=== PATIENT | female | born 1965 | race Two or more races ===

== ENCOUNTER 2020-10-31 13:09 | Emergency (ER) | payer MEDICARE ==
[~2020-10-31] VITALS: Ht 167.6 cm; Wt 100.2 kg
--- NOTE | 2020-10-31 13:41 | NUR ---
PT CAME IN [place], BODY ACHES AND SOB. "THIS MORNING I WOKE UP AND I FELT LIKE I WAS HAVING A HARD TIME CATCHING MY BREATH". PT TESTES POSITIVE FOR COVID LAST FRIDAY AND RECEIVED BOTH DOSES OF THE COVID VACCINE- LAST DOSE ON 10/06. EKG COMPLETE. PT RESTING IN GURNEY CONNECTED TO ALL MONITORING EQUIPMENT
--- NOTE | 2020-10-31 14:05 | NUR ---
ASSUMED CARE ON PT. SHE IS RESTING COMFORTABLY IN [place], ON MONITORS. VSS, DENIES PAIN, REG/UNLABORED RESP. NADN. CALL LIGHT WITHIN REACH.
[2020-10-31] MEDS ORDERED: SODIUM CHLORIDE FLUSH 10ML SYR IVF ONE (14:30)
--- NOTE | 2020-10-31 14:32 | NUR ---
XRAY COMPLETED. LABS BEING DRAWN NOW. REQUESTED TO COME BACK TO ROOM, THEY LIVE TOGETHER AND THIS WAS APPROVED. AND PT INSTRUCTED THERE IS NO IN/OUT. NADN, REGULAR/UNLABORED RESP. CALL LIGHT WITHIN REACH.
[2020-10-31 14:46] LABS: BASOPHILS % (AUTO) 1 % (0-1); EOSINOPHILS % (AUTO) 2 % (1-7); LYMPHOCYTES % (AUTO) 20 % (22-44); MEAN CORPUSCULAR HEMOGLOBIN 27.8 pg (27.0-34.8); MEAN CORPUSCULAR HGB CONC 33.5 g/dL (32.4-35.8); MEAN PLATELET VOLUME 8.2 fL (7.4-10.4); MONOCYTES % (AUTO) 10 % (2-9); NEUTROPHILS % (AUTO) 68 % (42-75); PLATELET COUNT 209 x10^3/uL (130-400); RED CELL DISTRIBUTION WIDTH 14.1 % (9.6-15.2)
[2020-10-31 14:50] LABS: MD NO
[2020-10-31 14:56] LABS: ALANINE AMINOTRANSFERASE 25 U/L (12-78); ALBUMIN 3.6 g/dL (3.4-5.0); ANION GAP 5 mmol/L (5-15); CALCIUM 8.6 mg/dL (8.5-10.1); CHLORIDE 108 mmol/L (98-107); CREATININE 0.73 mg/dL (0.55-1.02)
[2020-10-31 14:59] LABS: ALKALINE PHOSPHATASE 95 U/L (45-117); BILIRUBIN,TOTAL 0.4 mg/dL (0.2-1.0); TOTAL PROTEIN 7.2 g/dL (6.4-8.2)
--- NOTE | 2020-10-31 15:11 | NUR ---
PT UNHOOKED AND ASSISTED TO BATHROOM.
--- NOTE | 2020-10-31 15:20 | NUR ---
PT ABLE TO WALK WITH USE OF WHEELCHAIR. HER OXYGEN WAS 94% RA WITH AMBULATION.
[2020-10-31 15:52] VITALS: BP 134/89
--- NOTE | 2020-10-31 16:17 | NUR ---
Patient given discharge instructions and they have confirmed that they understand the instructions. Patient with wheelchair, is in lobby.
== END 2020-10-31 16:32 | disposition home or self-care (01) ==
LOC: ED 15:45
DX: J40 Bronchitis, not specified as acute or chronic (principal); R06.00 Dyspnea, unspecified; R06.02 Shortness of breath; R94.31 Abnormal electrocardiogram [ECG] [EKG]
CPT/HCPCS: 36415; 71045; 80053; 85025; 85379; 93005; 99285